=== PATIENT | female | born 1965 | race Hispanic/Latino ===

== ENCOUNTER 2017-11-04 15:59 | Emergency (ER) | payer OTHER, SELFPAY ==
[2017-11-04] MEDS ORDERED: DEXAMETHASONE SOD PHOSPHATE 10MG/ML 1ML VIAL ONE (17:24)
[2017-11-04] MEDS ORDERED: KETOROLAC TROMETHAMINE 30MG/ML ONE (17:25)
[2017-11-04 17:43] LABS: BASOPHILS % (AUTO) 0.6 % (0.0-5.0); EOSINOPHILS % (AUTO) 2.2 % (0.0-8.0); HEMATOCRIT 41.4 % (36-48); LYMPHOCYTES % (AUTO) 16.1 % (21.0-51.0); MEAN CORPUSCULAR HEMOGLOBIN 29.1 pg (27.0-33.0); MEAN CORPUSCULAR HGB CONC 34.2 g/dL (32.0-36.0); MEAN CORPUSCULAR VOLUME 85.1 fL (79-99); MONOCYTES % (AUTO) 8.3 % (3.0-13.0); NEUTROPHILS % (AUTO) 72.8 % (40.0-77.0); PLATELET COUNT (AUTO) 294 K/uL (130-400); RED BLOOD CELL COUNT(AUTO) 4.87 MIL/uL (4.00-5.50); WHITE BLOOD COUNT (AUTO) 12.1 K/uL (4.8-10.8)
[2017-11-04 17:50] LABS: CREATININE 0.7 mg/dL (0.5-1.5); POTASSIUM 4.2 mmol/L (3.5-5.1)
[2017-11-04] MEDS ORDERED: FAMOTIDINE/PF 20 MG/2 ML VIAL IV ONE (19:31)
== END 2017-11-04 21:55 | disposition left against medical advice (07) ==
LOC: EDH 15:59
DX: R60.0 Localized edema (principal); J02.9 Acute pharyngitis, unspecified
CPT/HCPCS: 36415; 70490; 80048; 85025; 96365; 96375; 99285; J1100; J1885; J3490

== ENCOUNTER 2019-04-06 20:08 | Emergency (ER) | payer OTHER, SELFPAY ==
[2019-04-06] MEDS ORDERED: LOPERAMIDE HCL 2 MG CAP PO ONE (21:34)
[2019-04-06] MEDS ORDERED: ONDANSETRON HCL 4 MG/2 ML VIAL ONE (21:35)
[2019-04-06] MEDS ORDERED: SODIUM CHLORIDE 0.9% 1000ML 1,000 ML IV ONE (21:38)
[2019-04-06 22:31] LABS: CREATININE 0.6 mg/dL (0.5-1.5); POTASSIUM 3.5 mmol/L (3.5-5.1)
[2019-04-06 22:37] LABS: BASOPHILS % (AUTO) 0.7 % (0.0-5.0); BILIRUBIN,DIRECT 0.1 mg/dL (0.0-0.3); BILIRUBIN,TOTAL 0.6 mg/dL (0.2-1.0); EOSINOPHILS % (AUTO) 1.8 % (0.0-8.0); HEMATOCRIT 39.2 % (36-48); LYMPHOCYTES % (AUTO) 23.3 % (21.0-51.0); MEAN CORPUSCULAR HEMOGLOBIN 29.5 pg (27.0-33.0); MEAN CORPUSCULAR HGB CONC 35.2 g/dL (32.0-36.0); MEAN CORPUSCULAR VOLUME 83.8 fL (79-99); MONOCYTES % (AUTO) 13.1 % (3.0-13.0); NEUTROPHILS % (AUTO) 61.1 % (40.0-77.0); NUCLEATED RED BLOOD CELLS 0.1 % (0.0-0.19); PLATELET COUNT (AUTO) 260 K/uL (130-400); RED BLOOD CELL COUNT(AUTO) 4.68 MIL/uL (4.00-5.50); RED CELL DISTRIBUTION WIDTH 12.9 % (11.0-15.5); TOTAL PROTEIN, SERUM 6.1 g/dL (6.0-8.3); WHITE BLOOD COUNT (AUTO) 7.4 K/uL (4.8-10.8)
== END 2019-04-06 22:55 | disposition home or self-care (01) ==
LOC: EDH 20:08
DX: K52.9 Noninfective gastroenteritis and colitis, unspecified (principal); Z90.710 Acquired absence of both cervix and uterus
CPT/HCPCS: 36415; 74018; 80048; 80076; 83690; 85025; 96361; 96374; 99285; J2405; J7030

== ENCOUNTER 2022-01-13 20:27 | Emergency (ER) | payer OTHER ==
[~2022-01-13] VITALS: Ht 152.4 cm; Wt 83.9 kg
[2022-01-13 20:28] VITALS: BP 154/71
[2022-01-13] MEDS ORDERED: ACETAMINOPHEN 500 MG TABLET PO ONE (21:00)
[2022-01-13] MEDS ORDERED: CYCLOBENZAPRINE HCL 10 MG TABLET PO ONE (21:30)
[2022-01-13] MEDS ORDERED: CYCL10TA16 PO (21:39)
[2022-01-13] MEDS ORDERED: NAPR500T6 PO (21:39)
[2022-01-13] MEDS ORDERED: CYCLOBENZAPRINE HCL 10 MG TABLET ONE (21:42)
== END 2022-01-13 21:53 | disposition home or self-care (01) ==
LOC: EDH 20:27
DX: M79.641 Pain in right hand (principal); E11.9 Type 2 diabetes mellitus without complications; E78.00 Pure hypercholesterolemia, unspecified; I10 Essential (primary) hypertension; Z79.899 Other long term (current) drug therapy
CPT/HCPCS: 73130

== ENCOUNTER 2022-06-17 01:34 | Emergency (ER) | payer OTHER, SELFPAY ==
[~2022-06-17] VITALS: Ht 152.4 cm; Wt 83.0 kg
[~2022-06-17 01:34] MED LIST: CYCL10TA16 PO; NAPR500T6 PO
[2022-06-17] MEDS ORDERED: IPRATROPIUM/ALBUTEROL SULFATE 3 ML SOLUTION IH ONE (02:30)
[2022-06-17] MEDS ORDERED: GUAIFENESIN-CODEINE 5 ML SYRUP PO ONE (02:30)
[2022-06-17] MEDS ORDERED: GUAIFENESIN-CODEINE 5 ML SYRUP ONE (02:35)
[2022-06-17] MEDS ORDERED: OSEL75 PO (03:44)
[2022-06-17] MEDS ORDERED: PHEN118S62 MM (03:44)
[2022-06-17 03:45] VITALS: BP 128/61
== END 2022-06-17 03:52 | disposition home or self-care (01) ==
LOC: EDH 01:34
DX: J11.1 Influenza due to unidentified influenza virus with other respiratory manifestations (principal); E11.9 Type 2 diabetes mellitus without complications; I10 Essential (primary) hypertension; Z79.1 Long term (current) use of non-steroidal anti-inflammatories (NSAID)
CPT/HCPCS: 71045; 94640

== ENCOUNTER 2022-09-02 09:35 | Emergency (ER) | payer OTHER, SELFPAY ==
[~2022-09-02] VITALS: Ht 152.4 cm; Wt 84.4 kg
[~2022-09-02 09:35] MED LIST changes: +OSEL75 PO; +PHEN118S62 MM
[2022-09-02] MEDS ORDERED: NAPROXEN 500 MG TABLET PO STA (09:38)
[2022-09-02 09:39] VITALS: BP 137/69
[2022-09-02] MEDS ORDERED: NAPR375T6 PO (10:26)
[2022-09-02] MEDS ORDERED: IBUPROFEN 600 MG TABLET PO ONE (10:30)
== END 2022-09-02 10:32 | disposition home or self-care (01) ==
LOC: EDH 09:35
DX: S93.402A Sprain of unspecified ligament of left ankle, initial encounter (principal); E11.9 Type 2 diabetes mellitus without complications; I10 Essential (primary) hypertension; Z79.1 Long term (current) use of non-steroidal anti-inflammatories (NSAID); W01.0XXA Fall on same level from slipping, tripping and stumbling without subsequent striking against object, initial encounter; Y93.01 Activity, walking, marching and hiking; Y92.89 Other specified places as the place of occurrence of the external cause; Y99.8 Other external cause status
CPT/HCPCS: 29515; 73610

== ENCOUNTER 2024-10-23 19:41 | Emergency (ER) | payer BC, SELFPAY ==
[~2024-10-23] VITALS: Ht 152.4 cm; Wt 77.1 kg
[~2024-10-23 19:41] MED LIST changes: +NAPR-1505 PO; +NAPR-1506 PO; -NAPR500T6 PO
--- NOTE | 2024-10-23 20:11 | ERN ---
ED Note History of Present Illness Stated Complaint: JOINT PAIN Chief Complaint: Other Problems Time Seen by MD: 19:53 Dictation: This is a 58-year-old female who presented to the emergency room with complaints of joint pains she is followed in the [facility]. Her PCP instructed her to take [id number] Motrin which she said was not helping Temperature 97.8 pulse 68 respirations 16 blood pressure 158/80 pulse oximetry 98% on room air Her chronic medical problems include diabetes mellitus and hypertension Allergies: Coded Allergies: No Known Drug Allergies (Unverified Allergy, Unknown, 01/13/22) Home Meds Active Scripts Naproxen (Naproxen) 375 Mg Tablet., 375 MG PO BID for 7 Days, #14 TAB Prov:ESTEPHANIA HOYOS MD 09/02/22 Phenol/Glycerin (Chloraseptic Max 1.5-33% [place]) 118 Ml [place], 118 ML MM 5X/DAY, #60 SPRAY Prov:CONNIE LINK MD 06/17/22 Oseltamivir Phosphate (Tamiflu) 75 Mg Cap, 75 MG PO BID, #10 CAP Prov:CONNIE LINK MD 06/17/22 Cyclobenzaprine HCl (Flexeril) 10 Mg Tab, 10 MG PO TID, #15 TAB Prov:FITTINGSNOW 01/13/22 Naproxen (Naproxen) 500 Mg Tablet., 500 MG PO BIDPC, #15 TAB Prov:FITTINGSNOWP 01/13/22 Past Medical History Past Medical History: Diabetes-Type II, Hypertension Surgical History: Hysterectomy, Other, Surgical History Other: BLADDER LIFT; D & C X 2 Family History: Negative Social History: Negative History: Not Applicable RN Note Reviewed/Agreed w/PFSH: Yes Review of System Dictation Constitutional: Negative for fever,chills, and weight loss Eyes: Negative for injury, pain,redness, and discharge ENT: Negative for injury,pain or swelling Cardiovascular: Negative for chest pain, palpitations, and edema Respiratory: Negative for shortness of breath, cough, and wheezing, Abdomen/GI: Negative for abdominal pain, nausea, vomiting, diarrhea, and constipation Back: Negative for injury and pain : Negative for injury, bleeding and discharge MS/Extremity: Negative for injury and deformity Skin: Negative for rash, and discoloration Neuro: Negative for headache, weakness, numbness, tingling, and seizure Psych: Negative for suicide ideation, homicidal ideation, and hallucinations Initial Vital Sign VS Vital Signs Date Time Temp Pulse Resp B/P (MAP) Pulse Ox O2 Delivery O2 Flow Rate FiO2 10/23/24 19:42 97.9 68 16 158/80 99 Room Air Physical Exam Dictation General: awake, alert, NAD Head/Face: Normocephalic, atraumatic Eyes: PERRL, EOMI, vision at baseline ENT: oral cavity clear, TMs clear, no signs of infection Neck: Trachea midline, supple, no nuchal rigidity Cardiovascular: RRR, normal S1/S2, No MRGs, no JVD Respiratory: CTAB, no respiratory distress, No rales or wheezes Abdomen: Soft, non-tender, non-distended, normal bowel sounds, no guarding or rebound. Skin: Warm, dry, normal turgor, no rash MS/Extremity: Pulses equal, no cyanosis, neurovascular intact, FROM Neuro: COAx4, GCS 15, strength 5/5, CN 2-12 intact, normal cerebellar exam, normal gait, Psych: Normal behavior, mood, and affect normal Extremities-trace edema without any palpable cords, Homans sign is negative Results (Laboratory/Radiology) Labs Reviewed?: Yes ED Course ED Course Orders Procedure Category Date Status Time Cbc With Differential LAB 10/23/24 Logged 19:59 Basic Metabolic Panel LAB 10/23/24 Logged 19:59 Urinalysis Profile LAB 10/23/24 Logged 19:59 Ketorolac PHA 10/23/24 In Process Tromethamine 30mg/Ml 20:30 Current Medications Medications (Trade) Dose Ordered Sig/Sil Route PRN Reason Start Time Stop Time Status Last Admin Dose Admin Ketorolac Tromethamine (toRADol) 30 mg ONCE ONCE IM 10/23/24 20:30 10/23/24 20:31 Vital Signs Date Time Temp Pulse Resp B/P (MAP) Pulse Ox O2 Delivery O2 Flow Rate FiO2 10/23/24 19:42 97.9 68 16 158/80 99 Room Air We will perform diagnostic labs, and administer medications according to the patient's complaint. Once the results are available, will review and personally interpreted the labs to rule out any acute life-threatening emergency the trach require immediate intervention and treatment. I will then re-evaluate the patient after treatment and diagnostic exams have return to determine whether the patient requires any further testing, can safely be discharged home or need further admission to hospital for additional treatment and evaluation. Medical Decision Making MDM MDM: Differential diagnosis: Osteoarthritis, arthralgias, rheumatoid arthritis Rationale: Tests considered and ordered secondary to shared decision making include: Previous outside records reviewed: Old ER visits. Risk of complication and/or morbidity or mortality of patient management: None Medications-Per medication reconciliation Need for hospitalization: Patient does not meet criteria for hospitalization. Need for emergency major/minor surgery: No There are no social concerns with this patient. Prescription drug management Prescriptions will include symptomatic care Patient's prior external medical records from other ER visits were reviewed by me as indicated. Prior testing and results from previous visits were reviewed. Prior tests were taken into account with medical decision making and resource utilization, independent historian/historians were used to obtain complete medical history. I independently interpreted the test that were performed, results were reviewed by me and considered findings on radiology if ordered. Medical management and examination interpretation discussions were had by me with other qualified healthcare professionals as indicated for the patient's care. DX & DISP Disposition: Discharge Departure Impression: Primary Impression: Osteoarthritis Additional Impression: Obesity Condition: Stable Scripts Prednisone (Prednisone) 20 Mg Tablet 1 TAB PO AD for 6 Days, #14 TAB 0 Refills TAKE 1 TAB BY MOUTH THREE TIMES PER DAY X3 DAYS, THEN TAKE 1 TAB BY MOUTH TWICE A DAY X2 DAYS, THEN TAKE 1 TAB BY MOUTH ONCE A DAY X1 DAY. Prov: VIVEK SMITH MD 10/23/24 Meloxicam (Meloxicam) 7.5 Mg Tablet 1 TAB PO DAILY for joint pains for 15 Days, #15 TAB 0 Refills Prov: VIVEK SMITH MD 10/23/24 Additional Instructions: Patient and the caregiver have been informed of all the diagnostic tests and the imaging conducted during the today's visit to the emergency room and has verbalized understanding of the results I have personally reviewed and interpreted all diagnostic exams performed here in the ER today as well as the vital signs documented by the nursing staff. The patient is now being discharged to home and should follow up with the primary care physician or the specialist as directed by the ER staff. Follow-up with primary care provider in 1 to 2 days. Take medications as directed here in the emergency room. Okay to continue home medications unless otherwise discussed during your visit in the emergency room today. Return to your nearest emergency room if symptoms worsen or if there is no improvement. Call 911 if you need immediate assistance. Take Tylenol or Motrin [id number] as needed and if no contraindications are present. Increase oral hydration. A wound culture or urine culture was ordered here in the emergency room department please follow-up with primary care provider and advise them to get repeat ports from our facility. If you had any Bryan wrap/splints that were applied here, please do not remove them until you see your primary care or specialty. Referrals: NONE (PCP) VIVEK SMITH MD Oct 23, 2024 20:11
[2024-10-23] MEDS ORDERED: MELO-106 PO (20:35)
[2024-10-23] MEDS ORDERED: PRED20TA3 PO (20:35)
[2024-10-23] MEDS: ketOROlac 30MG VIAL (30MG/ML) IM ONE (20:36)
[2024-10-23 20:37] VITALS: BP 141/65; PULSE 74; RESP 18; TEMP 97.8; O2SAT 98
== END 2024-10-23 20:44 | disposition home or self-care (01) ==
LOC: EDH 19:41
DX: M19.90 Unspecified osteoarthritis, unspecified site (principal); E66.9 Obesity, unspecified; E11.9 Type 2 diabetes mellitus without complications; I10 Essential (primary) hypertension; Z90.710 Acquired absence of both cervix and uterus; Z68.33 Body mass index [BMI] 33.0-33.9, adult
CPT/HCPCS: 99284; 96372; J1885